=== PATIENT | male | born 1995 | race Caucasian/White ===

== ENCOUNTER 2020-03-13 13:48 | Emergency (ER) | payer SELFPAY ==
[~2020-03-13] VITALS: Ht 170.2 cm; Wt 76.2 kg
[~2020-03-13 13:48] MED LIST: AMOX250CH PO; CEPH250A PO; CEPH500 PO; CLOT1TC TOP; CODGUAEL PO; PENVK250 PO; PERM5TC TOP
[2020-03-13] MEDS ORDERED: METPRE4DP PO (14:38)
[2020-03-13] MEDS ORDERED: BENADRYL25 MG PO (14:38)
== END 2020-03-13 14:44 | disposition home or self-care (01) ==
LOC: ER 13:48
DX: L23.7 Allergic contact dermatitis due to plants, except food (principal)
CPT/HCPCS: 99282